=== PATIENT | female | born 1990 | race Caucasian/White ===

== ENCOUNTER 2022-06-04 14:42 | Emergency (ER) | payer SELFPAY ==
[2022-06-04 14:55] VITALS: BP 125/70; PULSE 125; RESP 16; TEMP 37.1; O2SAT 99; BMI 18.0
--- NOTE | 2022-06-04 16:37 | ED.GENADULT ---
HPI - General Adult General Time Seen by Provider: 16:37 Date Seen: 06/04/22 Chief complaint: Nausea/Vomiting Stated complaint: Side and stomach pain Time Seen by Provider: 06/04/22 16:25 Source: patient and RN notes reviewed Mode of arrival: ambulatory Limitations: no limitations History of Present Illness HPI narrative: Patient is a 31-year-old female coming in with 6 week 4 day based on her home test. She has been having nausea that is significant. She did not have it this bad with her 1st . The last 3 days she was basically lying in bed really not feeling well, having some left flank and side pain. No urinary symptoms, no diarrhea. No actual vomiting. She actually feels a bit better if she does eat as far as the nausea but is having significant nausea. Stomach is bothered her, she does have significant underlying reflux and has had problems with that. She has tried to deal with it mostly by altering her diet. 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 She does use Tums. Her stomach was bothering her enough the last couple days she did not take a vitamin but has been able to do so. This is her 2nd and her 1st really was not complicated with such severe nausea. Related Data Previous Rx's Medication Instructions Recorded lactic acid 1.8 %-citric ac 1 1 appful vaginal PER PKG DIR #60 02/18/22 %-potassium bitartate 0.4 % grams vaginal gel (Phexxi) sertraline 50 mg tablet (Zoloft) 50 mg PO QDAY #30 tabs 02/18/22 nitrofurantoin 100 mg PO BID #13 caps 06/04/22 monohydrate/macrocrystals 100 mg capsule (Macrobid) Allergies Allergy/AdvReac Type Severity Reaction Status Date / Time cefprozil AdvReac Intermediate Hives Verified 06/04/22 15:03 Review of Systems Status of ROS: Reports: 6 or more systems reviewed and unremarkable except as noted in History and below [facility] Medical History Normal spontaneous vaginal delivery Surgical History H/O wisdom tooth extraction Family History Family/Other Breast cancer Other Bleeding disorder Social History Smoking Status: Never smoker Do you use any of these nicotine containing products: None Second hand tobacco smoke exposure: No How often do you have a drink containing alcohol: never How often do you have six or more drinks on one occasion: Never AUDIT-C Alcohol total score: 0 Little interest or pleasure in doing things: not at all Feeling down, depressed, or hopeless: not at all service: No Exam Const: Vital Signs, click to edit/add: Vital Signs - 24 hr 06/04/22 14:55 Temperature 98.7 F Pulse Rate [Pulse Oximeter] 125 H Respiratory Rate 16 Blood Pressure [Ri ght Upper Arm] 125/70 Pulse Oximetry 99 Oxygen Delivery Me thod Room Air Documenting provider has reviewed patient's vital signs: yes Common normals: no apparent distress, average body habitus, oriented x3, no limitations, healthy appearing and alert General appearance: cooperative, comfortable, well kempt and well developed HENMT: Common normals: normocephalic, head/scalp atraumatic, hearing grossly normal bilaterally, external nose normal, nasal mucous membranes and turbinates normal, moist oral mucous membranes, oropharynx normal, dentition normal and gingiva normal Head and scalp: normocephalic and atraumatic Nose: external nose normal and nasal mucous membranes and turbinates normal Eye: Common normals: PERRL, EOMs intact bilaterally, conjunctivae normal and no scleral icterus Conjunctiva: conjunctiva(e) normal Pupil: PERRL Neck & C-Spine: Common normals: full ROM, no lymphadenopathy, supple, no meningeal signs, no JVD and thyroid normal Thyroid: thyroid normal Resp: Common normals: normal respiratory effort, no retractions, no use of accessory muscles and clear to auscultation bilaterally Auscultation: clear to auscultation bilaterally Cardio: Common normals: no JVD, regular rhythm, S1 normal heart sound, S2 normal heart sound, no gallops, no clicks and no murmurs Rate: tachycardic Rhythm: regular rhythm Heart sounds: S1 normal and S2 normal GI: Common normals: Normal to inspection, nondistended, normoactive bowel sounds present, soft to palpation, non-tender, no hepatosplenomegaly and no masses Palpation: soft and no hepatosplenomegaly : Common normals: no CVA tenderness Bladder/kidney exam: no CVA tenderness Back & Pelvis: Common normals: no CVA tenderness Neuro: Common normals: oriented x3 Sensorium/orientation: alert Meningeal signs: no meningeal signs Psych: Appearance: well kempt Course Course Hospital Course: Will establish an IV, give her L of IV fluids. Patient will get appropriate labs. At this point her pain is markedly improved without any intervention. I reviewed with her that I honestly am at a bit of a loss to explain what would be happening with her and just start going away on its own. Will consider intra-abdominal pathology, things potentially related to . I am reassured that she is improving as far as pain. Will consider imaging if need be but at this time will start with labs given her reassuring clinical examination. Reevaluation(s) Reevaluation #1: Have reviewed the mildly elevated white blood count which I still feel is normal for as this will increase normally in . Her labs are otherwise fine as far as chemistries. Urinalysis is showing 3+ leukocyte esterase. She has just a few reds, 5-10 white cells. We are waiting a urine culture. Have reviewed entities such as kidney stones, pyelonephritis. I am still in a bit of a loss to explain why she suddenly is starting to have diminishing left side and flank pain without any intervention. She overall was feeling better by the time she got here. We discussed imaging in the form of an ultrasound to look at this left urinary system. We discussed the pros and cons. Given that she is having diminishing pain at this time, there thought is to await the urine culture, start antibiotics for presumed urinary tract infection and discharge to home for further observation. I think this is an appropriate plan and reasonable given her pain is diminished. We have done no pain management and she is feeling better. Given her allergy to cephalosporins, have opted to give her 1st dose Macrobid here. Time: 18:39 Vital Signs Vital signs: Initial Vital Signs Temperature 98.7 F 06/04/22 14:55 Temperature Source Oral 06/04/22 14:55 Pulse Rate 125 H 06/04/22 14:55 Pulse Rhythm 06/04/22 14:55 Pulse Strength 3+ Normal 06/04/22 14:55 Respiratory Rate 16 06/04/22 14:55 Blood Pressure 125/70 06/04/22 14:55 Blood Pressure Mean 88 06/04/22 14:55 Blood Pressure Position Sitting 06/04/22 14:55 Pulse Oximetry 99 06/04/22 14:55 Oxygen Delivery Method 06/04/22 14:55 Vital Signs Temperature 98.7 F 06/04/22 14:55 Pulse Rate 125 H 06/04/22 14:55 Respiratory Rate 16 06/04/22 14:55 Blood Pressure 125/70 06/04/22 14:55 Pulse Oximetry 99 06/04/22 14:55 Oxygen Delivery Method 06/04/22 14:55 Temperature 98.7 F 06/04/22 14:55 Pulse Rate 125 H 06/04/22 14:55 Respiratory Rate 16 06/04/22 14:55 Blood Pressure 125/70 06/04/22 14:55 Pulse Oximetry 99 06/04/22 14:55 Oxygen Delivery Method 06/04/22 14:55 Medical Decision Making Lab Data Lab results reviewed: Yes I reviewed the patient's lab results Labs: Lab Results 06/04/22 06/04/22 06/04/22 Range/Units 16:08 16:08 16:08 WBC 12.33 H (4.50-11.00) K/uL RBC 4.67 (4.00-5.20) m/uL Hgb 14.2 (12.0-16.0) gm/dL Hct 42.2 (33.0-51.0) % MCV 90 (80-100) fL MCH 30 (26-34) pg MCHC 34 (32-36) gm/dL RDW Coeff of Raza 11.8 (11.5-15.5) % Plt Count 286 (140-440) K/uL Neut % (Auto) 82.2 H (42.0-72.0) % Lymph % (Auto) 12.0 L (20-44) % Atkinson % (Auto) 5.3 (0.0-11.0) % Eos % (Auto) 0.1 (0.0-7.0) % Baso % (Auto) 0.2 (0.0-3.0) % Neut # (Auto) 10.10 H (1.7-7.0) K/uL Lymph # (Auto) 1.50 (0.90-2.90) K/uL Atkinson # (Auto) 0.70 (0.00-0.90) K/UL Eos # (Auto) 0.00 (0.00-0.50) K/uL Baso # (Auto) 0.00 (0.00-0.30) K/uL Sodium 141 (135-149) mmol/L Potassium 3.7 (3.6-5.1) mmol/L Chloride 108 (96-114) mmol/L Carbon Dioxide 22 (20-32) mmol/L BUN 9 (5-24) mg/dL Creatinine 0.6 (0.5-1.5) mg/dL Estimated Creat Clear 112.90 Estimated GFR 124 ml/min Glucose 96 (60-115) mg/dL Calcium 9.5 (8.4-10.6) mg/dL Total Bilirubin 0.7 (0.1-1.5) mg/dL Direct Bilirubin 0.2 (0.0-0.5) mg/dL AST 25 (12-35) U/L ALT 24 (4-35) U/L Alkaline Phosphatase 60 (40-150) U/L Total Protein 7.7 (6.0-8.3) g/dL Albumin 4.9 (3.3-5.0) g/dL Lipase 110 (23-300) U/L Urine Color Yellow (Yellow) Urine Appearance Clear (Clear) Urine pH 6.0 (5.0-8.5) Ur Specific [place] 1.010 (1.000-1.030) Urine Protein Negative (Negative) Urine Glucose (UA) Negative (Negative) Urine Ketones Trace A (Negative) Urine Blood Trace-intact A (Negative) Urine Nitrite Negative (Negative) Urine Bilirubin Negative (Negative) Urine Urobilinogen 0.2 (0.2-1.0) Ur Leukocyte Esterase 3+ A (Negative) Urine RBC 2-5 A (0-2) Urine WBC 5-10 A (0-5) Ur Squamous Epith Cells Few (None-Few) Urine Bacteria Few A (None) Critical Care Time Critical Care Time Critical Care Time: No Discharge Plan Discharge Clinical Impression: First trimester , Abnormal finding on urinalysis, Left lateral abdominal pain Patient Disposition: Home, Self-Care Condition: Stable Instructions: Abdominal Pain in (ED), Urinary Tract Infection in (ED), at 7 to 10 Weeks (ED) Additional Instructions: Take the antibiotic as prescribed, next dose due tomorrow morning. We will await the urine culture results. In the meantime, get your initial OB appointment scheduled in clinic. If you have worsening of this left upper abdominal pain again, develops any fever, have vomiting with this pain, have new concerns, please seek re-evaluation. Activity Level: Activity as Tolerated Discharge Diet: Regular Prescriptions: New nitrofurantoin monohyd/m-cryst [Macrobid] 100 mg capsule 100 mg PO BID Qty: 13 0RF Rx Instructions: must administer with a meal/food No Action Phexxi 1.8-1-0.4 % gel 1 appful vaginal PER PKG DIR Qty: 60 6RF Rx Instructions: insert 1 applicatorful vaginally within 1 hour before each act of vaginal intercourse sertraline [Zoloft] 50 mg tablet 50 mg PO QDAY Qty: 30 1RF Rx Instructions: take 25mg daily x7days, then increase to 50mg daily thereafter Follow Up/Referrals: Provider,Not a Local [Primary Care Provider] - Stand Alone Forms: [employer] Info Instructions
[2022-06-04 16:50] LABS: Basophils Percent Auto 0.2 % (0.0-3.0); Eosinophils Percent Auto 0.1 % (0.0-7.0); Hematocrit 42.2 % (33.0-51.0); Hemoglobin* 14.2 gm/dL (12.0-16.0); Immature Granulocytes Pct Auto 0.2 %; Mean Corpuscular HGB Conc 34 gm/dL (32-36); Mean Corpuscular Hemoglobin 30 pg (26-34); Mean Corpuscular Volume 90 fL (80-100); Monocytes Percent Auto 5.3 % (0.0-11.0); Neutrophils Percent Auto 82.2 % (42.0-72.0); Platelet Count* 286 K/uL (140-440); RDW Coefficient of Variation % 11.8 % (11.5-15.5); Red Blood Count 4.67 m/uL (4.00-5.20); White Blood Count* 12.33 K/uL (4.50-11.00)
[2022-06-04 16:55] LABS: Appearance Urine Clear (Clear); Bilirubin Urine Negative (Negative); Blood Urine Trace-intact (Negative); Color Urine Yellow (Yellow); Glucose Urine Negative (Negative); Ketones Urine Trace (Negative); Leukocyte Esterase Urine 3+ (Negative); Nitrite Urine Negative (Negative); Protein Urine Negative (Negative); Urobilinogen Urine 0.2 (0.2-1.0)
[2022-06-04] MEDS: 0.9 % SODIUM CHLORIDE 1000 ml 1,000 ML IV (16:58)
[2022-06-04 17:02] LABS: Slide Review Reflex No
[2022-06-04 17:10] LABS: Albumin* 4.9 g/dL (3.3-5.0)
[2022-06-04 17:11] LABS: Chloride* 108 mmol/L (96-114); Potassium* 3.7 mmol/L (3.6-5.1); Sodium* 141 mmol/L (135-149)
[2022-06-04 17:13] LABS: Carbon Dioxide* 22 mmol/L (20-32); Creatinine* 0.6 mg/dL (0.5-1.5); Estimated Glomerular Filt Rate 124 ml/min; Total Protein* 7.7 g/dL (6.0-8.3)
[2022-06-04 17:14] LABS: Alanine Aminotransferase* 24 U/L (4-35); Alkaline Phosphatase* 60 U/L (40-150); Aspartate Amino Transferase* 25 U/L (12-35); Bilirubin Direct* 0.2 mg/dL (0.0-0.5); Bilirubin Total* 0.7 mg/dL (0.1-1.5); Blood Urea Nitrogen* 9 mg/dL (5-24); Calcium* 9.5 mg/dL (8.4-10.6); Glucose* 96 mg/dL (60-115); Lipase* 110 U/L (23-300)
[2022-06-04 18:17] LABS: Squamous Epithelial Cell Urine Few (None-Few)
[2022-06-04 18:18] LABS: Bacteria Urine Few
[2022-06-04] MEDS: NITROFURANTOIN MONOHYD MACRO 100 MG CAPSULE PO (19:03)
[2022-06-04 19:05] VITALS: BP 118/76; RESP 18; TEMP 37.2
== END 2022-06-04 19:10 | disposition home or self-care (01) ==
PROVIDERS: Family Medicine; Emergency Provider Family Medicine
DX: O26.891 Other specified pregnancy related conditions, first trimester (principal); R10.9 Unspecified abdominal pain; R82.90 Unspecified abnormal findings in urine
CPT/HCPCS: 36415; 80048; 80076; 81001; 83690; 85025; 87086; 96360; 99283; 99284; A9270; J7030

== ENCOUNTER 2022-07-08 09:35 | Outpatient (CLI) | payer SELFPAY ==
--- NOTE | 2022-07-08 09:45 | CRLHL7_ITS ---
For Patients: As a result of the Cures Act, medical imaging exams and procedure reports are released immediately into your electronic medical record. You may view this report before your referring provider. If you have questions, please contact your health care provider. INDICATION: First trimester scan, establish dates. COMPARISON: None. TECHNIQUE: Real-time chapa-scale imaging of the pelvis was performed. FINDINGS: Sonographic imaging demonstrates a single living intrauterine gestation. The embryo demonstrates a regular cardiac rate measuring 157 beats per minute. The embryo`s crown-rump length measurement of 4.9 cm corresponds to a gestational age of 11 weeks 5 days with a sonographic due date of 01/22/2023. There is a normal-appearing yolk sac. There are no gross abnormalities noted within the embryo at this early state of development. The gestational sac has a normal appearance. There is no evidence of a perigestational hemorrhage. The amount of fluid within the sac appears appropriate for gestational age. The cervix is closed. The myometrium appears normal. The ovaries are of normal size. Corpus luteal cyst left ovary. There are no suspicious fluid collections noted in the cul-de-sac. IMPRESSION: Normal first trimester OB ultrasound exam. Gestational age calculated at 11 weeks 5 days with a sonographic due date of 01/22/2023. Dictated by Jean Frost MD @ 07/08/2022 12:28:17 PM (Electronically Signed)
== END 2022-07-08 09:36 | disposition home or self-care (01) ==
LOC: US 09:36
PROVIDERS: Visit Provider Registered Nurse
DX: Z34.91 Encounter for supervision of normal pregnancy, unspecified, first trimester (principal); Z3A.11 11 weeks gestation of pregnancy
CPT/HCPCS: 76801

== ENCOUNTER 2022-07-08 11:01 | Outpatient (CLI) | payer SELFPAY ==
[2022-07-08 14:45] LABS: Hepatitis B Surface Antigen* Negative (Negative)
[2022-07-08 14:51] LABS: HIV 1/2/P24 Combo Screen* Negative (Negative)
[2022-07-08 15:02] LABS: Hepatitis C Virus Antibody* Negative (Negative)
[2022-07-08 15:33] LABS: Chlamydia DNA Amplified* NOT DETECTED (No Detected); GC DNA Amplified* NOT DETECTED (No Detected)
[2022-07-09 23:52] LABS: Rapid Plasma Reagin (RPR) Non Reactive (Non Reactive)
[2022-07-10 03:52] LABS: Varicella-Zoster Virus Ab, IgG 408.2 IV
== END 2022-07-08 11:02 | disposition home or self-care (01) ==
PROVIDERS: Visit Provider Registered Nurse
DX: Z34.91 Encounter for supervision of normal pregnancy, unspecified, first trimester (principal); Z3A.11 11 weeks gestation of pregnancy
CPT/HCPCS: 86592; 86703; 86762; 86787; 86803; 86850; 86900; 86901; 87086; 87340; 87491; 87591

== ENCOUNTER 2022-09-10 07:11 | Outpatient (CLI) | payer SELFPAY ==
--- NOTE | 2022-09-10 07:15 | CRLHL7_ITS ---
For Patients: As a result of the Century Cures Act, medical imaging exams and procedure reports are released immediately into your electronic medical record. You may view this report before your referring provider. If you have questions, please contact your health care provider. INDICATION: Evaluate anatomy. COMPARISON: 07/08/2022 TECHNIQUE: Real time chapa scale imaging of the fetus was performed as well as color Doppler analysis of the umbilical vessels. FINDINGS: Sonographic imaging demonstrates a single living intrauterine gestation. Fetus demonstrates a regular cardiac rate of 139 beats per minute. Fetus has a vertex position. The placenta lies posteriorly without evidence of placenta previa. The placenta is located 3.8 cm from the internal cervical os. Amniotic fluid volume appears normal. Single deepest vertical pocket: 4.2 cm. The cervix is closed and measures 3.6 cm in length. The composite ultrasound gestational age is calculated at 21 weeks 1 day with an estimated sonographic due date of 01/20/2023. The estimated weight is 378 grams which lies at the 58th %. The following biometric measurements were obtained: Biparietal diameter: 5.0 cm/21 weeks 0 days 68th% Head circumference: 19.0 cm/21 weeks 2 days 72nd% Abdominal circumference: 15.5 cm/20 weeks 5 day 46th% Femur length: 3.5 cm/20 weeks 6 days 52nd% The HC/AC ratio measures: 1.23 range (1.06-1.25) On anatomic survey, there is a normal appearance of the cerebral ventricles, cavum septi pellucidi, cisterna magna and cerebellum. The nose, lips, and facial profile appear normal. The cervical, thoracic and lumbar spine are well visualized and appear normal. There is a normal four-chamber heart view and the left and right ventricular outflow tracts appear normal. The diaphragm and stomach appear normal. The kidneys and bladder also appear normal. There is a normal three-vessel cord and cord insertion site. The four extremities appear normal. IMPRESSION: Normal OB ultrasound exam with concordance of clinical and sonographic dating. No intrinsic abnormalities noted on anatomic survey. Dictated by Jean Frost MD @ 09/10/2022 10:05:13 AM (Electronically Signed)
== END 2022-09-10 07:12 | disposition home or self-care (01) ==
LOC: US 07:12
PROVIDERS: Visit Provider Advanced Practice Midwife
DX: Z34.92 Encounter for supervision of normal pregnancy, unspecified, second trimester (principal); Z3A.21 21 weeks gestation of pregnancy
CPT/HCPCS: 76805

== ENCOUNTER 2022-12-23 10:40 | Outpatient (CLI) | payer SELFPAY ==
[2022-12-24 19:26] LABS: Strep B DNA Probe NEGATIVE (Negative)
[2022-12-24 19:28] LABS: Strep B Pen/Amox Allergy No
== END 2022-12-23 10:41 | disposition home or self-care (01) ==
LOC: LKVREF 10:41
PROVIDERS: Visit Provider Advanced Practice Midwife
DX: Z34.93 Encounter for supervision of normal pregnancy, unspecified, third trimester (principal); Z3A.35 35 weeks gestation of pregnancy
CPT/HCPCS: 87081; 87653

== ENCOUNTER 2023-01-27 04:23 | Inpatient (IN) | payer SELFPAY ==
[2023-01-27] VITALS (34 sets, daily range): BP systolic 124–184; BP diastolic 73–96; PULSE 70–100; RESP 14–18; TEMP 36.3–36.9; O2SAT 93–99; BMI 23.2
--- NOTE | 2023-01-27 04:31 | P.LDBA_ITS ---
Documented by User: Yisel Smith CNM 01/27/23 05:11 Subjective History of Present Illness Date Seen: 01/27/23 Narrative: Angie is being admitted to Labor and Delivery for labor. She is a 32 year old at 40.3 weeks gestation. On admission her blood pressure was 145/74, on recheck she continues to be elevated at 146/77. She reports she has had visual migraines more often the last few days, reports she loses vision in one area of her sight when this happens. No other s/s of pre-E reported. Denies leaking of fluid, some bloody show, reports + movement. Her full history and physical was dictated by Abdirizak Costa CNM on 01/13/2023. Please see this for details. Specific Issues/Plans : Chidi H&P done by ALEX Almonte on 01/13/2023 1. H/o delivery at 35 6/7 (PPROM) GBS collected at 35 weeks. 2. Will not accept blood transfusion from anyone who has received covid vaccine. Plans to look into having a family member donate blood in advance to have on hold in the event she needs a transfusion. Has info for [facility] but still working on it. Confirmed that she will accept any blood in a life or situation only. 3. Low BMI. 17.9 4. Eccentric insertion, 2.5 cm from placenta edge 5. Anxiety. Increased at the end of 2nd trimester. Declines medication at this time. Planning to start therapy. [place] very exposed w/ peds talking to her and staring at her while pushing. May want option of blanket, or note on the door instructing people to knock. Flu: not vaccinated. Recommended. Covid: not vaccinated. Recommended. States she will not get the covid vaccine. Discussed risks of covid infection in . Tdap: declines OB - Problem Based A/P Additional Plan (1) Uterine contractions: Status: Acute Plan Assessment:?? at 40.3 weeks gestation?? GBS Negative Patient is coping well with challenges of labor.?? Labor type: Spontaneous, Early labor? complicated by: Low BMI Eccentric insertion, 2.5cm from placenta edge anxiety Labor complicated by: elevated blood pressure? Plan:?? * ?Admit to L & D? * IV access: NA * Monitoring: intermittent * Candidate for analgesia of choice.? Planning no medication for pain management * Desires waterbirth.? Consent signed and Hep C negative * Expectant management at this time * Elevated Blood pressure: Pre-E labs and close monitoring of blood pressures * Anticipate progress to NVD Delivery/Labor/Induction Plan Plan: expectant management OB Exam Physical Exam Vital signs: Temp Pulse Resp BP 97.7 F 72 18 145/74 H 01/27/23 03:45 01/27/23 03:44 01/27/23 03:45 01/27/23 03:44 Narrative: Vitals Reviewed Constitutional:? Alert and oriented x3 HEENT:? Normocephalic, atraumatic Neck:? Supple Lungs:? Clear to auscultation bilaterally Heart:? Regular rate and rhythm, no murmur, rub or gallop Abdomen:? Soft, nontender, and gravid. Vertex by José Luis's. Extremities:? No edema or erythema Cervix: 5 cm/80%/-1 station/vertex per RN NST: 125 bpm/ moderate variability/ + accelerations/ no decelerations/ every 2-3 mins contractions Detailed Labor and Delivery Exam Patient Gravid: Yes Fetus (Single) Amniotic Membrane Status: intact Documented by User: Trinity Rojas CNM 01/27/23 05:13 Subjective History of Present Illness Narrative: Angie is being admitted to Labor and Delivery for labor. She is a 32 year old at 40.3 weeks gestation. On admission her blood pressure was 145/74, on recheck she continues to be elevated at 146/77. She reports she has had visual migraines more often the last few days, reports she loses vision in one area of her sight when this happens. She notes a history of visual migraines, even when not . She also feels as though stress/major life events brings these on. No other s/s of pre-E reported. Denies leaking of fluid, some bloody show, reports + movement. Her full history and physical was dictated by Abdirizak Costa CNM on 01/13/2023. Please see this for details. Planning unmedicated waterbirth, did have an epidural previously. Specific Issues/Plans : Chidi H&P done by ALEX Almonte on 01/13/2023 1. H/o delivery at 35 6/7 (PPROM) GBS collected at 35 weeks. 2. Will not accept blood transfusion from anyone who has received covid vaccine. Plans to look into having a family member donate blood in advance to have on hold in the event she needs a transfusion. Has info for [facility] but still working on it. Confirmed that she will accept any blood in a life or situation only. 3. Low BMI. 17.9 4. Eccentric insertion, 2.5 cm from placenta edge 5. Anxiety. Increased at the end of 2nd trimester. Declines medication at this time. Planning to start therapy. [place] very exposed w/ peds talking to her and staring at her while pushing. May want option of blanket, or note on the door instructing people to knock. Flu: not vaccinated. Recommended. Covid: not vaccinated. Recommended. States she will not get the covid vaccine. Discussed risks of covid infection in . Tdap: declines OB - Problem Based A/P Additional Plan (1) Uterine contractions: Status: Acute Plan Assessment:?? at 40.3 weeks gestation?? GBS Negative Patient is coping well with challenges of labor.?? Labor type: Spontaneous, Early labor? complicated by: Low BMI Eccentric insertion, 2.5cm from placenta edge anxiety Labor complicated by: elevated blood pressure? Plan:?? * ?Admit to L & D? * IV access: not at this time, but consider if BPs remain elevated. * Monitoring: intermittent per protocol * Candidate for analgesia of choice.? Planning no medication for pain management * Desires waterbirth.? Consent signed and Hep C negative * Expectant management at this time * Elevated Blood pressure: Pre-E labs and close monitoring of blood pressures * Anticipate progress to NVD
[2023-01-27 05:27] LABS: Hematocrit 39.7 % (33.0-51.0); Hemoglobin* 12.9 gm/dL (12.0-16.0); Mean Corpuscular HGB Conc 33 gm/dL (32-36); Mean Corpuscular Hemoglobin 28 pg (26-34); Mean Corpuscular Volume 86 fL (80-100); Platelet Count* 218 K/uL (140-440); Red Blood Count 4.62 m/uL (4.00-5.20); White Blood Count* 10.96 K/uL (4.50-11.00)
[2023-01-27 05:31] LABS: Slide Review Reflex No
[2023-01-27 05:44] LABS: Creatinine* 0.9 mg/dL (0.5-1.5); Est. Creatinine Clearance* 88.07; Estimated Glomerular Filt Rate 88 ml/min
[2023-01-27 05:45] LABS: Alanine Aminotransferase* 124 U/L (4-35); Aspartate Amino Transferase* 89 U/L (12-35); Blood Urea Nitrogen* 18 mg/dL (5-24)
[2023-01-27 05:45] LABS: Total Protein Urine 31 mg/dL
[2023-01-27 05:46] LABS: Creatinine Urine 200.1 mg/dL
[2023-01-27] MEDS: ONDANSETRON 2 MG/ML inj 4 MG IV (08:10)
[2023-01-27] MEDS: MAGNESIUM IV 4 GM/100 ML PIGGYBACK IVPB (08:17)
[2023-01-27] MEDS: LACTATED RINGERS 1000 ML 1,000 ML 75 ML IV ×2 (08:18→11:26)
[2023-01-27] MEDS: OXYTOCIN 30 unit/500 ML in NS 30 UNIT/500 ML BAG 300 UNIT IVPB (09:39)
[2023-01-27] MEDS: miSOPROStoL 800 MCG/4 TABLET PR (09:49)
[2023-01-27] MEDS: IBUPROFEN 600 MG TABLET PO ×2 (10:08→18:17)
[2023-01-27 11:21] LABS: Hematocrit 38.2 % (33.0-51.0); Hemoglobin* 12.5 gm/dL (12.0-16.0); Mean Corpuscular HGB Conc 33 gm/dL (32-36); Mean Corpuscular Hemoglobin 28 pg (26-34); Mean Corpuscular Volume 86 fL (80-100); Platelet Count* 209 K/uL (140-440); Red Blood Count 4.47 m/uL (4.00-5.20)
[2023-01-27 11:25] LABS: Slide Review Reflex No
[2023-01-27 11:35] LABS: Aspartate Amino Transferase* 94 U/L (12-35); Creatinine* 0.7 mg/dL (0.5-1.5); Est. Creatinine Clearance* 113.24; Estimated Glomerular Filt Rate 119 ml/min
[2023-01-27 11:36] LABS: Alanine Aminotransferase* 103 U/L (4-35); Blood Urea Nitrogen* 13 mg/dL (5-24)
--- NOTE | 2023-01-27 12:11 | W.PM.OBVAGDE ---
OB Procedure Vag Delivery Mother Details Mother Details: The patient is a 32 year-old, 2, Para 1, admitted on 01/27/23 at 40.3 Days gestation. Patient was admitted for active labor. She did have elevated blood pressures after admission mostly in the 130'/80's with one at 140's/80's and labs were drawn. She denies headaches, visual changes or RUQ pain. Her P/C ratio was normal but her AST and ALT were elevated. Dr. Sherman was consulted with with this information and decided not to start magnesium at that time as she was 8cm, progressing well and her BP's were overall normal and to monitor BP's more frequently. She decided on augmentation with AROM after no cervical change an hours later. Risks and benefits were discussed. Shortly after AROM her blood pressures began to be elevated and were found to be greater than 150's x2. She was instructed to get out of the tub after that. Dr. Sherman was again consulted and ordered IV magnesium to be started. agreeable to co-management. AROM noted at 0758 with clear fluid. Patient was complete at 0825 and pushing at 0826. of a viable male at 0934 in right tilt in the bed. Vertex delivered OA. No nuchal cord or shoulder. Body delivered easily and without incident. passed to mothers abdomen with a vigorous cry. Cord was clamped and cut at > 5 minutes. APGARS were 8 at one minute and 9 at five minutes respectively. Mouth was bulb suctioned. After 30 minutes the placenta had not delivered and was not releasing. She was given rectal Cytotec. After an additional [address] Sherman was consulted. At her arrival the placenta was starting to slowly release. It did deliver intact without difficult about 1 hours after . Intact placenta with a 3 vessel cord delivered at 1036. It was found to have an accessory lobe. Fundus firm but did note some urine with palpation. Encouraged her to get up to urinate soon to prevent uterine atony. Intact perineum was identified and no repair was needed. QBL 100 cc. Mother and baby stable; mother plans to breastfeed. Infant weight pending.? Approximately 30 minutes after delivery of the placenta I was called back to the room. The RN noted many clots expressed with palpation. She was chilled and appeared pale but not diaphoretic and denies feeling dizzy, lightheaded or weak. She was being warmed with a bear hugger. She was agreeable to a straight cath on my arrival and about 600ml was removed. She palpated firm with small about of lochia after that. Will monitor bleeding closely and consider other uterotonics as needed. : 2 Para: 1 Weeks Gestation: 40.3 Admission Date: 01/27/23 Additional Details Amniotic Membrane Status: AROM Amniotic Membrane Rupture Date: 01/27/23 Amniotic Membrane Rupture Time: 07:58 Amniotic Membrane Fluid Description: Clear Analgesia/Anesthesia Type: Nitrous Oxide Waterbirth: No (labored in the tub but risked out while in the tub due to elevated BP's) Pitcoin: Yes (AMTSL) Intrapartal Events: Labor Augmentation Delivery augmentation: rupture of membranes Labor Onset: 03:45 Complete: 08:25 Pushin:26 Heart: heart tones during second stage were category II. Good variability. Deep variables to the 70's and occasionally to the 50's with contractions with good return to baseline between contractions. Many positions were used to help with recovery between pushing. Pushing effectively. Dr. Sherman was consulted with a deep variable at the beginning of pushing that was slower to return to baseline. after her arrival this variable had resolved and the next few were not as deep and with a quicker return to baseline. Delivery Details Delivery Date: 01/27/23 Delivery Time: 09:34 Route of delivery: Infant Gender: Male Infant Viability: Alive; Heart Rate Present Position at Delivery: OA 1 Minute Interval Total Score: 8 5 Minute Interval Total Score: 9 Additional Details Shoulder Dystocia: No Placenta Delivery Time: 10:36 Placental Delivery Description: Spontaneous (accessory lobe present) Procedure Done: Global Blood Loss: 255 (100ml in drape and 155ml measured clots after.) Laceration: None Episiotomy Description: None Blood Loss Measurement Type: QBL Bakri Used: No Sponge/Need Count Correct: Yes Cord Vessel Description: 3 Vessels and Around Extremity (around foot) Event Summary Status: Mother and were stable after delivery. Disposition: floor
[2023-01-27 14:25] LABS: Magnesium* 5.5 mg/dL (1.5-2.6)
[2023-01-28 00:45] VITALS: BP 128/87; PULSE 77; RESP 16; TEMP 36.8; O2SAT 97
[2023-01-28] MEDS: IBUPROFEN 600 MG TABLET PO ×2 (00:45→14:22)
[2023-01-28] MEDS: LACTATED RINGERS 1000 ML 1,000 ML 75 ML IV (01:57)
[2023-01-28 04:40] VITALS: BP 126/85; PULSE 77; RESP 16; TEMP 36.5; O2SAT 97
[2023-01-28 06:21] LABS: Basophils Percent Auto 0.2 % (0.0-3.0); Eosinophils Percent Auto 0.1 % (0.0-7.0); Hemoglobin* 11.2 gm/dL (12.0-16.0); Immature Granulocytes Pct Auto 1.2 %; Lymphocytes Percent Auto 15.4 % (20-44); Mean Corpuscular HGB Conc 33 gm/dL (32-36); Mean Corpuscular Hemoglobin 28 pg (26-34); Mean Corpuscular Volume 86 fL (80-100); Monocytes Percent Auto 7.4 % (0.0-11.0); Neutrophils Percent Auto 75.7 % (42.0-72.0); Platelet Count* 239 K/uL (140-440); RDW Coefficient of Variation % 13.6 % (11.5-15.5); Red Blood Count 3.94 m/uL (4.00-5.20); White Blood Count* 16.06 K/uL (4.50-11.00)
[2023-01-28 06:23] LABS: Slide Review Reflex No
[2023-01-28 06:41] LABS: Alanine Aminotransferase* 144 U/L (4-35); Aspartate Amino Transferase* 135 U/L (12-35); Blood Urea Nitrogen* 9 mg/dL (5-24); Creatinine* 0.7 mg/dL (0.5-1.5); Est. Creatinine Clearance* 113.24; Estimated Glomerular Filt Rate 119 ml/min
[2023-01-28 09:18] VITALS: BP 122/80; PULSE 86; RESP 14; TEMP 36.4; O2SAT 96
[2023-01-28] MEDS: DOCUSATE SODIUM 100 MG CAPSULE PO (09:23)
[2023-01-28] MEDS: NIFEdipine 30 MG TAB.ER.24 PO (09:23)
[2023-01-28 11:56] VITALS: BP 123/84; PULSE 81; RESP 16; TEMP 36.8; O2SAT 97
[2023-01-28 16:42] VITALS: BP 124/85; PULSE 84; RESP 14; TEMP 36.9; O2SAT 97
--- NOTE | 2023-01-28 20:01 | P.OBPN_ITS ---
OB - PN:Subj Subjective Time Seen by Provider: 19:50 Date Seen: 01/28/23 Interval history: Angie is a 32 y.o. who was admitted to [facility] for spontaneous labor. ?She had an NVD complicated by retained placenta, delivered after 1 hour, and severe pre- eclampsia that was diagnosed in labor. She was on Magnesium until this morning. Her labs were notable for AST and ALT elevations. BP's since magnesium has completed have been 120/80's. Patient denies any symptoms of headache, blurred vision, epigastric pain, or n/v.?The patient feels significantly better now that she is off.?The pain is well controlled with current medications. ?She has no new complaints. ?She is breast feeding and reports things are going well.? the patient has done well.? Vitals have been stable.? She has remained afebrile.? Has a good appetite, is tolerating a general diet. ?She is voiding without difficulty.? She is passing gas and has not had a bowel movement.? She is ambulating and denies any dizziness.? Has Small amount of rubra lochia. Discussed plan of care this evening with Dr. Walker. Repeat labs ordered for this evening and tomorrow morning. Patient comments OB post-: pain well controlled, perineal pain, tolerating diet and flatus present infant status: and doing well feeding status: exclusively OB - PN: Obj Exam Physical Exam: Vital signs: Temp Pulse Resp BP Pulse Ox O2 Del Method 98.5 F 84 14 124/85 97 Room Air 01/28/23 16:42 01/28/23 16:42 01/28/23 16:42 01/28/23 16:42 01/28/23 16:42 01/28/23 16:42 Narrative: GENERAL APPEARANCE:? normal affect, alert, no distress MOOD:? appropriate CHEST:? clear to auscultation HEART:? regular rate and rhythm ABDOMEN:? soft, non-tender the uterine fundus is at Umbilicus, Midline and is appropriate for the stage of recovery. PERINEUM:? mild edema of the perineum. EXTREMITIES:? normal and no edema OB - PN: Obj Data Labs Labs: Laboratory Results - last 24 hr 01/28/23 06:05 WBC 16.06 H RBC 3.94 L Hgb 11.2 L Hct 34.0 MCV 86 MCH 28 MCHC 33 RDW Coeff of Raza 13.6 Plt Count 239 Neut % (Auto) 75.7 H Lymph % (Auto) 15.4 L [place] % (Auto) 7.4 Eos % (Auto) 0.1 Baso % (Auto) 0.2 Neut # (Auto) 12.20 H Lymph # (Auto) 2.50 [place] # (Auto) 1.20 H Eos # (Auto) 0.00 Baso # (Auto) 0.00 Abs Immat Gran (auto) 0.20 Imm/Tot Granulo (auto) 1.2 BUN 9 Creatinine 0.7 Estimated Creat Clear 113.24 Estimated GFR 119 AST 135 H ALT 144 H OB - PN: A/P Delivery Assessment and Plan (1) care and examination immediately after delivery: Status: Acute (2) Severe pre-eclampsia: Status: Acute (3) Lactating mother: Status: Acute Plan day: 1 Plan: routine care Comments: Magnesium completed around 9 am this morning. Continue to monitor BP. Repeat labs ordered for this evening and tomorrow morning. May see if desired. Anticipate discharge tomorrow if patient remains stable.
[2023-01-28 20:25] LABS: Alanine Aminotransferase* 118 U/L (4-35); Blood Urea Nitrogen* 14 mg/dL (5-24); Creatinine* 0.8 mg/dL (0.5-1.5); Estimated Glomerular Filt Rate 101 ml/min
[2023-01-28 20:38] VITALS: BP 138/88; PULSE 87; RESP 16; TEMP 36.9; O2SAT 96
[2023-01-28 20:59] LABS: Hematocrit 28.9 % (33.0-51.0); Hemoglobin* 9.3 gm/dL (12.0-16.0); Mean Corpuscular HGB Conc 32 gm/dL (32-36); Mean Corpuscular Hemoglobin 28 pg (26-34); Mean Corpuscular Volume 88 fL (80-100); Platelet Count* 230 K/uL (140-440); Red Blood Count 3.29 m/uL (4.00-5.20); Slide Review Reflex No
[2023-01-28 21:19] LABS: Aspartate Amino Transferase* 102 U/L (12-35)
[2023-01-29] VITALS (7 sets, daily range): BP systolic 122–145; BP diastolic 77–90; PULSE 68–90; RESP 16–18; TEMP 36.8–37; O2SAT 96–98
[2023-01-29 06:19] LABS: Hematocrit 28.4 % (33.0-51.0); Hemoglobin* 9.2 gm/dL (12.0-16.0); Mean Corpuscular HGB Conc 32 gm/dL (32-36); Mean Corpuscular Hemoglobin 29 pg (26-34); Mean Corpuscular Volume 88 fL (80-100); Platelet Count* 206 K/uL (140-440); Red Blood Count 3.23 m/uL (4.00-5.20)
[2023-01-29 06:25] LABS: Slide Review Reflex No
[2023-01-29 06:46] LABS: Alanine Aminotransferase* 129 U/L (4-35); Aspartate Amino Transferase* 96 U/L (12-35); Blood Urea Nitrogen* 11 mg/dL (5-24)
[2023-01-29 06:50] LABS: Creatinine* 0.7 mg/dL (0.5-1.5); Est. Creatinine Clearance* 110.73; Estimated Glomerular Filt Rate 119 ml/min
[2023-01-29] MEDS: DOCUSATE SODIUM 100 MG CAPSULE PO (09:13)
[2023-01-29] MEDS: FERROUS SULFATE 325 MG TABLET PO (09:14)
[2023-01-29] MEDS: NIFEdipine 30 MG TAB.ER.24 PO (09:14)
--- NOTE | 2023-01-29 11:40 | P.DS_ITS ---
DS: Providers Provider Time Seen by Provider: 11:41 Date Seen: 01/29/23 Date of admission: 01/27/23 04:23 Primary care physician: Not a Local Provider Admitting Clinician: Trinity Rojas CNM Consults: 01/27/23 09:44 Consult to Physician [CONS] Routine Comment: Consulting Provider: Priyanka Sherman Has provider been notified: Yes Attending Physician on discharge: Erwin Hodges MD Date of Discharge: 01/29/23 DS: Diagnosis Discharge Diagnosis (1) Severe pre-eclampsia: Status: Acute Exam Narrative: Exam Narrative: VITAL SIGNS: As noted above. GENERAL APPEARANCE: Alert, cooperative female in no acute distress. MOOD & AFFECT: Normal. HEART: Regular rate and rhythm without murmurs. LUNGS: Lungs are clear to auscultation bilaterally. No crackles, wheezes, or rhonchi. ABDOMEN: Soft, non-distended. Well contracted uterus. : Normal lochia. EXTREMITIES: Trace edema. Well perfused. Nontender. NEURO: Intact. Const: Vital Signs, click to edit/add: Vital Signs - 24 hr 01/28/23 11:56 01/28/23 16:42 01/28/23 20:38 Temperature 98.2 F 98.5 F 98.4 F Pulse Rate [Pulse Oximeter] 81 84 87 Respiratory Rate 16 14 16 Blood Pressure [Le ft Arm] 123/84 124/85 138/88 Pulse Oximetry 97 97 96 Oxygen Delivery Me thod Room Air Room Air 01/29/23 00:01 01/29/23 03:05 01/29/23 06:07 Temperature 98.2 F 98.6 F 98.4 F Pulse Rate [Pulse Oximeter] 83 76 68 Respiratory Rate 16 16 18 Blood Pressure [Le ft Arm] 122/85 125/87 138/85 Pulse Oximetry 96 97 97 Oxygen Delivery Me thod Room Air Room Air Room Air 01/29/23 06:25 01/29/23 09:15 Temperature 98.4 F Pulse Rate [Pulse Oximeter] 90 Respiratory Rate 16 Blood Pressure [Le ft Arm] 145/90 H 125/77 Pulse Oximetry 96 Oxygen Delivery Me thod Room Air OB - DS: Summary Hospital Course Hospital Course: The patient is a 32 year old G 2 P 2001 at 40 5/7 weeks gestation that was admitted to the Center on 01/27/23 for delivery. She had an uncomplicated vaginal delivery. She delivered a viable male infant. She is breast feeding. Patient was diagnosed with preeclampsia with severe features due to severely elevated blood pressures and transaminitis during laboring process. Received magnesium sulfate infusion for 24 hours. Currently on Nifedipine 30mg daily. This morning had an episode of SOB, that resolved after rest and sleep. Blood pressures have remained controlled. No HADOOP ADMINISTRATOR irritability symptoms such as headache, visual changes or pain in her upper abdomen. Patient has been under observation for more than 24 hours after magnesium infusion ended. Patient is requesting discharge home. Peripartum Data Infant delivery method: Vaginal Laceration description: None [place] Gender: Male Infant Discharge Plan: Home Time Spent with Patient Time attestation: Total time spent providing and/or coordinating discharge services: Time spent: Less than 30 minutes Discharge Plan Discharge Disposition: Home, Self-Care Date of Admission: 01/27/23 04:23 Attending Provider on Discharge: Gali Hodges Consulting Providers: Priyanka Sherman Primary Care Provider: Provider,Not a Local Condition: Stable Anticipated Discharge Date/Time: 01/29/23 12:00 Discharge Medications: New nifedipine 30 mg Tablet Extended Release 24hr 30 mg PO DAILY Qty: 30 0RF ferrous sulfate 325 mg (65 mg iron) Tablet 325 mg PO Q48H Qty: 30 0RF ibuprofen 600 mg Tablet 600 mg PO Q6H PRNQty: 30 0RF Continued prenat.vits,sushma,[id number] Tablet 1 tab PO QDAY Discharge Orders: Discharge Order (Routine); Ordered 01/29/23 Ordered By: Gali Hodges Patient Education: Preeclampsia and Eclampsia After Delivery (GEN), OB Vaginal/Breast Feeding Additional Instructions: Follow up in clinic early next week, Wednesday or Wednesday next week (02/01/23, 02/02/23). Repeat liver enzymes next week. Activity Level: Activity as Tolerated Activity Detail: Nothing vaginally for 6 weeks Discharge Diet: Regular Follow Up Appointments: Provider,Not a Local [Primary Care Provider] - Forms: [employer] Info Instructions
== END 2023-01-29 15:30 | disposition home or self-care (01) | DRG 807 ==
LOC: OB OUT 04:25 → OB 04:25
PROVIDERS: Advanced Practice Midwife; Obstetrics & Gynecology; Admitting Provider Advanced Practice Midwife; Visit Provider Advanced Practice Midwife
DX: O14.14 Severe pre-eclampsia complicating childbirth (principal); Z37.0 Single live birth; O73.0 Retained placenta without hemorrhage; O99.344 Other mental disorders complicating childbirth; F41.9 Anxiety disorder, unspecified; R06.02 Shortness of breath; Z3A.40 40 weeks gestation of pregnancy
CPT/HCPCS: 36415; 82565; 82570; 83735; 84156; 84450; 84460; 84520; 85025; 85027; 86850; 86900; 86901; 99213; A9270; J2405; J3475; J7120

== ENCOUNTER 2023-02-01 14:31 | Outpatient (CLI) | payer SELFPAY | END 2023-02-01 14:32 | disposition home or self-care (01) | LOC: NFLDREF 02-03 02:04 | PROVIDERS: Visit Provider Advanced Practice Midwife | DX: O14.10 Severe pre-eclampsia, unspecified trimester (principal) | CPT/HCPCS: 82565; 84450; 84460; 84520; 84550 ==

== ENCOUNTER 2023-02-10 11:09 | Outpatient (CLI) | payer SELFPAY | END 2023-02-10 11:10 | disposition home or self-care (01) | LOC: NFLDREF 02-12 08:53 | PROVIDERS: Visit Provider Advanced Practice Midwife | DX: Z39.2 Encounter for routine postpartum follow-up (principal); F41.9 Anxiety disorder, unspecified; R06.02 Shortness of breath; R23.1 Pallor | CPT/HCPCS: 84450; 84460 ==

== ENCOUNTER 2023-03-31 13:55 | Outpatient (CLI) | payer OTHER, SELFPAY ==
--- NOTE | 2023-03-31 14:00 | CRLHL7_ITS ---
For Patients: As a result of the Century Cures Act, medical imaging exams and procedure reports are released immediately into your electronic medical record. You may view this report before your referring provider. If you have questions, please contact your health care provider. INDICATION: Nine weeks with vaginal bleeding TECHNIQUE: Ultrasound pelvis transabdominal and transvaginal for better assessment or to better visualize the endometrium. Real-time sonographic images with spectral and color Doppler imaging of the ovaries were obtained. COMPARISON: None FINDINGS: Uterus: 5.5 x 5.8 by 4.4 cm. Mildly heterogeneous myometrium. Endometrium: Transvaginal imaging was performed to better evaluate the endometrium. Endometrial thickness measures 7 mm. There is a somewhat ill-defined heterogeneous appearance of the endometrium without obvious vascular lesion. Right ovary measures 3.8 x 1.4 x 1.3 cm and left ovary measures 3.5 x 1.4 x 1.4 cm. No ovarian or adnexal masses. Normal arterial and venous blood flow is demonstrated in both ovaries. Cul-de-sac: No significant free fluid. IMPRESSION: Somewhat ill-defined heterogeneous endometrium without obvious vascular retained products of conception. Otherwise, no definite acute abnormality is identified. Dictated by Rubin Pepper MD @ 03/31/2023 4:28:19 PM (Electronically Signed)
== END 2023-03-31 13:56 | disposition home or self-care (01) ==
LOC: US 13:56
PROVIDERS: Visit Provider Advanced Practice Midwife
DX: N93.9 Abnormal uterine and vaginal bleeding, unspecified (principal)
CPT/HCPCS: 76830; 76856